=== PATIENT | male | born 1995 | race Hispanic/Latino ===

== ENCOUNTER 2017-09-30 00:22 | Emergency (ER) | payer OTHER ==
[~2017-09-30] VITALS: Ht 165.1 cm; Wt 86.6 kg
[2017-09-30] MEDS ORDERED: ASPIRIN 325 MG TAB PO ONE (00:30)
[2017-09-30] MEDS ORDERED: PANTOPRAZOLE 40 MG 10ML VIAL IV ONE (00:30)
[2017-09-30] MEDS ORDERED: IBUPROFEN400 MG PO (00:54)
[2017-09-30] MEDS ORDERED: PEPCID20 MG PO (00:54)
[2017-09-30 01:10] VITALS: BP 130/72
== END 2017-09-30 01:11 | disposition home or self-care (01) ==
LOC: FSED 00:22
DX: R07.89 Other chest pain (principal); G44.219 Episodic tension-type headache, not intractable; R20.2 Paresthesia of skin
CPT/HCPCS: 71046; 80053; 80307; 81003; 82553; 84484; 85025; 85379; 93005; 96374; 99283

== ENCOUNTER 2019-02-22 17:53 | Emergency (ER) | payer OTHER ==
[~2019-02-22] VITALS: Ht 165.1 cm; Wt 86.6 kg
[~2019-02-22 17:53] MED LIST: IBUPROFEN400 MG PO; PEPCID20 MG PO
[2019-02-22] MEDS ORDERED: SODIUM CHLORIDE 0.9% 1000ML 1,000 ML IV SCH ×2 (18:15→19:00)
[2019-02-22 18:28] LABS: BASOPHILS % 0.2 % (0.0-1.0); EOSINOPHILS # (AUTO) 0.1 (0.0-0.4); EOSINOPHILS % 0.4 % (0.0-6.0); HEMATOCRIT 43.5 % (38.2-49.6); HEMOGLOBIN 15.6 g/dL (14.0-18.0); LYMPHOCYTES # (AUTO) 1.3 (1.0-3.2); LYMPHOCYTES % 8.4 % (18.0-39.1); MEAN CORPUSCULAR HEMOGLOBIN 30.6 pg (28-32); MEAN CORPUSCULAR HGB CONC 35.9 g/dL (31-35); MEAN CORPUSCULAR VOLUME 85.5 fL (81-99); MONOCYTES # (AUTO) 0.9 (0.2-0.8); MONOCYTES % 5.7 % (4.4-11.3); NEUTROPHILS % 84.7 % (38.7-80.0); PLATELET COUNT 244 x10e3/uL (140-360); RED BLOOD COUNT 5.09 x10e6/uL (4.3-5.7); RED CELL DISTRIBUTION WIDTH 12.5 % (11.7-14.4)
[2019-02-22 18:31] LABS: BILIRUBIN,URINE NEGATIVE (NEGATIVE); CLARITY,URINE SL CLOUDY (CLEAR); COLOR,URINE YELLOW (YELLOW); LEUKOCYTE ESTERASE ,URINE NEGATIVE (NEGATIVE); NITRITE,URINE NEGATIVE (NEGATIVE); PROTEIN,URINE DIPSTICK TRACE (NEGATIVE); URINE UROBILINOGEN 0.2 mg/dL (0.2 - 1)
[2019-02-22 18:32] LABS: KETONES,URINE 2+ (NEGATIVE)
[2019-02-22 18:34] LABS: AMPHETAMINES SCREEN,URINE NEGATIVE (NEGATIVE); BENZODIAZEPINES SCREEN,URINE NEGATIVE (NEGATIVE); PHENCYCLIDINE SCREEN,URINE NEGATIVE (NEGATIVE)
[2019-02-22 18:42] LABS: ALANINE AMINOTRANSFERASE 19 IU/L (0-55); ALBUMIN/GLOBULIN RATIO 1.5 (0.8-2.0); ALKALINE PHOSPHATASE 67 IU/L (40-150); AMYLASE 75 U/L (25-125); ANION GAP 20.4 mmol/L (8-16); BLOOD UREA NITROGEN 24 mg/dL (7-26); BUN/CREATININE RATIO 18 (6-25); CALCIUM 10.1 mg/dL (8.4-10.2); CARBON DIOXIDE 20 mmol/L (22-29); CHLORIDE 99 mmol/L (98-107); EST GLOMERULAR FILTRATION RATE > 60 ML/MIN (60-); GLUCOSE 122 mg/dL (74-118); LIPASE 7 U/L (8-78); POTASSIUM 3.4 mmol/L (3.5-5.1); SODIUM 136 mmol/L (136-145)
[2019-02-22 18:45] LABS: AMORPHOUS SEDIMENT,URINE FEW (FEW); BACTERIA,URINE RARE /HPF; MUCUS,URINE FEW (RARE); RBC,URINE 0-5 /HPF (0-5)
[2019-02-22] MEDS ORDERED: POTASSIUM CHLORIDE 20 MEQ TAB CR PO ONE (18:55)
[2019-02-22] MEDS ORDERED: ONDANSETRON HCL INJ 2MG/ML 2ML 2 MG/ML VIAL IV ONE (18:55)
[2019-02-22] MEDS ORDERED: ZOFRAN4 MG SL (19:20)
--- NOTE | 2019-02-22 19:39 | Diagnostic Imaging Report ---
Examination: Single AP view of the chest. COMPARISON: None. INDICATION: Headache DISCUSSION: Lines/tubes: None. Lungs: The lungs are well inflated and clear. No pneumonia or pulmonary edema. Pleura: No pleural effusion or pneumothorax. Heart and mediastinum: The heart and the mediastinum are unremarkable. Bones and soft tissues: No acute bony abnormalities. IMPRESSION: 1. No acute cardiopulmonary abnormalities. Signed by: Dr. Rah Campbell M.D. on 02/22/2019 7:36 PM
[2019-02-22] MEDS ORDERED: ACETAMINOPHEN 325 MG TAB PO ONE (19:45)
--- NOTE | 2019-02-22 19:47 | Diagnostic Imaging Report ---
EXAMINATION: Head CT without contrast. HISTORY:Headache, dizziness and numbness. COMPARISON:None. TECHNIQUE: Multidetector axial images were obtained from the foramen magnum to the vertex without contrast. The images were reconstructed using brain and bone algorithms. Thin section brain images were reformatted into coronal and sagittal planes. Dose modulation, iterative reconstruction, and/or weight based adjustment of the mA/kV was utilized to reduce the radiation dose to as low as reasonably achievable. Intravenous contrast: None IMAGE QUALITY: Acceptable. FINDINGS: Skull/scalp: No lytic or blastic. lesions. No surgical changes. Parenchyma: No abnormal density. No acute hemorrhage, mass or acute major vascular territorial infarct. Arteries: No density suggestive of thrombosis. Dural sinuses: No abnormal density suggestive of thrombosis. Ventricles: No hydrocephalus or displacement. Extra-axial spaces: No abnormal density. Brain volume: Normal for age. Craniocervical junction: No mass, Chiari malformation, or basilar invagination. Sella: No mass. Paranasal/mastoid sinuses: Imaged portions unremarkable. IMPRESSION: No intracranial abnormality. Signed by: Dr. Miranda Hamilton M.D. on 02/22/2019 7:43 PM
[2019-02-22 21:19] VITALS: BP 132/76
== END 2019-02-22 21:21 | disposition home or self-care (01) ==
LOC: ER 17:53
DX: R51 Headache (principal)
CPT/HCPCS: 36415; 70450; 71045; 80053; 80307; 81001; 82150; 82550; 83690; 83735; 85025; 93005; 99284; J2405; J7030